=== PATIENT | female | born 1945 | race Caucasian/White ===

== ENCOUNTER 2017-07-16 00:23 | Inpatient (IN) | payer MEDICARE, OTHER ==
[~2017-07-16] VITALS: Ht 154.9 cm; Wt 74.2 kg
[~2017-07-16 00:23] MED LIST: ASPI-664 PO; BENA40TA54 PO; DEXL30CA2 PO; FOLI-49 PO; GLIM2TAB47 PO; METF500T4 PO; METH2.5T21 PO; METO5TAB58 PO; SIMV40TA3 PO; SITA100T8 PO
[2017-07-16] MEDS ORDERED: morphine 4 MG/ML VIAL IV STA (01:25)
[2017-07-16] MEDS ORDERED: VANCOMYCIN 1 GM (PMX) 250 ML IVPB ONE (01:30)
[2017-07-16 02:26] LABS: BASOPHILS % 0.4 % (0.0-2.0); EOSINOPHILS # 0.2 10^3/ul (0.0-0.5); EOSINOPHILS % 3.5 % (0.0-7.0); HEMATOCRIT 30.8 % (37.0-47.0); HEMOGLOBIN 9.4 g/dl (12.0-16.0); LYMPHOCYTES # 1.3 10^3/ul (0.8-2.9); LYMPHOCYTES % 27.3 % (15.0-51.0); MEAN CORPUSCULAR HEMOGLOBIN 24.8 pg (29.0-33.0); MEAN CORPUSCULAR HGB CONC 30.5 g/dl (32.0-37.0); MEAN CORPUSCULAR VOLUME 81.3 fl (82.0-101.0); MEAN PLATELET VOLUME 9.8 fl (7.4-10.4); MONOCYTE # 0.7 10^3/ul (0.3-0.9); MONOCYTES % 14.3 % (0.0-11.0); NEUTROPHIL # 2.6 10^3/ul (1.6-7.5); NEUTROPHILS % 54.3 % (39.0-77.0); PLATELET COUNT 112 10^3/UL (140-415); RED BLOOD COUNT 3.79 10^6/ul (4.20-5.40); WHITE BLOOD COUNT 4.8 10^3/ul (4.8-10.8)
[2017-07-16 02:36] LABS: ADD UMIC YES; UR ASCORBIC ACID NEGATIVE (NEGATIVE); UR BACTERIA FEW /HPF (NONE SEEN); UR BILIRUBIN (Dip) NEGATIVE (NEGATIVE); UR BLOOD (Dip) 1+ mg/dL (NEGATIVE); UR CLARITY CLEAR (CLEAR); UR COLOR YELLOW (YELLOW); UR GLUCOSE (Dip) NEGATIVE (NEGATIVE); UR KETONES (Dip) NEGATIVE (NEGATIVE); UR LEUKOCYTE ESTERASE (Dip) TRACE Leu/ul (NEGATIVE); UR NITRITE (Dip) NEGATIVE (NEGATIVE); UR RBC 0 /HPF (0-5); UR SPECIFIC GRAVITY (Dip) 1.008 (1.003-1.030); UR TOTAL PROTEIN (Dip) NEGATIVE (NEGATIVE); UR UROBILINOGEN (Dip) NEGATIVE (NEGATIVE)
[2017-07-16 02:46] LABS: ALBUMIN/GLOBULIN RATIO 1.14; BILIRUBIN,INDIRECT 0.2 mg/dl (0-1.1); BILIRUBIN,TOTAL 0.2 mg/dl (0.2-1.3); CALCIUM 9.4 mg/dl (8.4-10.2); CREATININE 0.87 mg/dl (0.44-1.00); POTASSIUM 4.1 mmol/L (3.5-5.1); TOTAL PROTEIN 7.5 g/dl (6.1-8.1)
[2017-07-16] MEDS ORDERED: ACETAMINOPHEN 325 MG TAB PO PRN (03:00)
[2017-07-16] MEDS ORDERED: ONDANSETRON 4 MG INJ IV PRN (03:00)
[2017-07-16] MEDS ORDERED: CEFTRIAXONE 1 GM/50 ML (PMX) 50 ML IVPB ONE (03:00)
[2017-07-16] MEDS ORDERED: SIMV40TA2 PO (03:11)
[2017-07-16] MEDS ORDERED: REMI IV (03:11)
[2017-07-16] MEDS ORDERED: PIOG30TA2 PO (03:11)
[2017-07-16] MEDS ORDERED: BENA40TA41 PO (03:11)
[2017-07-16] MEDS ORDERED: TERI2.4P SQ (03:11)
[2017-07-16] MEDS ORDERED: MTF1000T PO (03:11)
[2017-07-16] MEDS ORDERED: SITA100T8 PO (03:11)
[2017-07-16] MEDS ORDERED: GLIM4TAB55 PO (03:11)
[2017-07-16] MEDS ORDERED: FOLI-49 PO (03:11)
[2017-07-16] MEDS ORDERED: DEXL60CA2 PO (03:11)
[2017-07-16] MEDS ORDERED: ASPI-535 PO (03:11)
[2017-07-16 04:04] VITALS: Ht 154.9 cm; Wt 74.2 kg
[2017-07-16] MEDS ORDERED: HYDROCODONE/APAP (5/325) TAB PO PRN (06:30)
[2017-07-16] MEDS: PANTOPRAZOLE (EC) 40 MG TAB PO SCH (07:56)
[2017-07-16] MEDS: metFORMIN 500 MG TAB PO SCH ×2 (07:56→17:20)
[2017-07-16] MEDS: ACETAMINOPHEN 325 MG TAB PO PRN (07:56)
[2017-07-16] MEDS: INSULIN ASPART [NOVOLOG] 3 ML PEN SC SCH ×4 (07:57→20:34)
[2017-07-16 08:00] VITALS: BP 110/53; RESP 17
[2017-07-16] MEDS ORDERED: SOD CHLORIDE 0.9% IVPB SCH (08:00)
[2017-07-16] MEDS ORDERED: ACYCLOVIR IVPB SCH (08:00)
[2017-07-16 08:41] LABS: ABNORMAL IP MESSAGE 1; BASOPHILS % 0.5 % (0.0-2.0); EOSINOPHILS # 0.1 10^3/ul (0.0-0.5); EOSINOPHILS % 2.9 % (0.0-7.0); HEMATOCRIT 27.3 % (37.0-47.0); HEMOGLOBIN 8.2 g/dl (12.0-16.0); LYMPHOCYTES # 1.2 10^3/ul (0.8-2.9); LYMPHOCYTES % 30.3 % (15.0-51.0); MEAN CORPUSCULAR HEMOGLOBIN 24.8 pg (29.0-33.0); MEAN CORPUSCULAR VOLUME 82.5 fl (82.0-101.0); MEAN PLATELET VOLUME 9.7 fl (7.4-10.4); MONOCYTE # 0.6 10^3/ul (0.3-0.9); MONOCYTES % 15.1 % (0.0-11.0); NEUTROPHILS % 50.9 % (39.0-77.0); PLATELET COUNT 98 10^3/UL (140-415); RED BLOOD COUNT 3.31 10^6/ul (4.20-5.40); RED CELL DISTRIBUTION WIDTH 17.1 % (11.5-14.5); WHITE BLOOD COUNT 3.8 10^3/ul (4.8-10.8)
[2017-07-16] MEDS: PIOGLITAZONE 30 MG TAB PO SCH (08:47)
[2017-07-16] MEDS: GLIMEPIRIDE 4 MG TAB PO SCH (08:47)
[2017-07-16] MEDS: BENAZEPRIL 40 MG TAB PO SCH (08:48)
[2017-07-16] MEDS: LINAGLIPTIN 5 MG TABLET PO SCH (08:48)
[2017-07-16] MEDS: ASPIRIN (EC) 81 MG TAB PO SCH (08:48)
[2017-07-16] MEDS: FOLIC ACID 1 MG TAB PO SCH (08:48)
[2017-07-16] MEDS: GABAPENTIN 300 MG CAP PO SCH ×2 (08:48→20:34)
[2017-07-16 08:54] LABS: POSITIVE DIFF @See below
[2017-07-16] MEDS ORDERED: METHYLPREDNISOLONE 125 MG INJ IV SCH (09:00)
[2017-07-16] MEDS ORDERED: TERIPARATIDE 20 MCG XX SCH (09:00)
[2017-07-16 09:03] LABS: ALBUMIN 3.4 g/dl (3.3-4.9); ALBUMIN/GLOBULIN RATIO 1.09; BILIRUBIN,INDIRECT 0.1 mg/dl (0-1.1); BILIRUBIN,TOTAL 0.1 mg/dl (0.2-1.3); CALCIUM 8.6 mg/dl (8.4-10.2); CREATININE 0.73 mg/dl (0.44-1.00); MAGNESIUM 1.4 mg/dl (1.7-2.5); PHOSPHORUS 3.8 mg/dl (2.5-4.9); POTASSIUM 3.8 mmol/L (3.5-5.1); TOTAL PROTEIN 6.5 g/dl (6.1-8.1)
[2017-07-16 14:00] VITALS: BP 131/76; RESP 18
[2017-07-16] MEDS ORDERED: CEFAZOLIN 1 GM/50 ML (PMX) 50 ML IVPB SCH (14:00)
[2017-07-16] MEDS: ACYCLOVIR IVPB SCH ×2 (15:51→23:27)
[2017-07-16] MEDS: DEXTROSE 5% IVPB SCH ×2 (15:51→23:27)
[2017-07-16 19:50] VITALS: BP 110/54; RESP 20
[2017-07-16] MEDS: ATORVASTATIN 20 MG TAB PO SCH (20:34)
--- NOTE | 2017-07-16 21:37 | HP ---
DATE OF ADMISSION: 07/16/2017 REASON FOR ADMISSION: 1. Cutaneous zoster infection. 2. Superimposed cellulitis. 3. Infection of immunocompromised host. 4. Left lower extremity pain and redness. SECONDARY DIAGNOSES: 1. Diabetes. 2. Hypertension. 3. Coronary artery disease. 4. Rheumatoid arthritis. 5. Hyperlipidemia. CHIEF COMPLAINT: Sent in by primary care provider for worsening left lower extremity pain, redness, and swelling. HISTORY OF PRESENT ILLNESS: The patient is a very pleasant 72-year-old female with history of diabe esperanza, hypertension, coronary artery disease, rheumatoid arthritis on Remicade, hyperlipidemia, presen hal to the ED with complaints of right lower extremity redness and swelling. The patient indicated that this occurred 3 days prior. The patient was given oral antibiotics and was diagnosed with herp es zoster and sent home. Was instructed judiciously by her primary care provider, who indicated clint t the patient should return to the hospital if she has worsening of her left lower extremity given h er immunocompromised status and her diabetes. The patient felt that there was increasing pain, redn ess, and edema despite the oral antibiotics. The patient was seen and evaluated in the ED and moises castro was admitted to the hospital for further evaluation and treatment. Patient currently denies any chest pain, lightheadedness, dizziness. No nausea, vomiting, diarrhea, constipation. Does complain of right lower extremity redness and swelling with, left greater than right. There is evidence of pustules on the left lateral aspect of the lower leg and now the left l ateral aspect of the knee and the lateral epicondyle area. Denies any fevers or chills. ALLERGIES: NO KNOWN DRUG ALLERGIES. MEDICATIONS: 1. Aspirin 81 mg p.o. every day. 2. Benazepril 40 mg p.o. every day. 3. Dexilant 60 mg p.o. every day. 4. Folic acid 1 mg p.o. every day. 5. Glimepiride 2 mg p.o. every day. 6. Remicade 100 mg solution every 6 weeks. 7. Metformin 1000 mg p.o. b.i.d. 8. Methotrexate 2.5 mg 6 tabs weekly. 9. Reglan 5 mg p.o. every day. 10. Actos 30 mg p.o. every day. 11. Simvastatin 40 mg p.o. every day. 12. Januvia 100 mg p.o. every day. 13. Forteo 2.4 pen injection subcutaneous once a day. PAST MEDICAL HISTORY: 1. Diabetes, on multiple medications. 2. Hypertension. 3. Coronary artery disease. 4. Rheumatoid arthritis. 5. Hyperlipidemia. 6. Osteoporosis, on Forteo. PAST SURGICAL HISTORY: 1. History of hysterectomy. 2. Cholecystectomy. 3. Hernia repair. PAST HOSPITALIZATION: Hospitalized for pneumonia, rheumatoid flare. FAMILY HISTORY: Reviewed and noncontributory. SOCIAL HISTORY: The patient lives with her and daughter. I was able to use a cane at times when her rheumatoid flares. PHYSICAL EXAMINATION: On hospital floor: VITAL SIGNS: Temperature is 97.6, blood pressure is 140/63, pulse of 90, respiratory rate 16, satur ating 99% on room air. GENERAL: Patient was awake, alert, and oriented x4. HEENT: Normocephalic, atraumatic. Sclerae nonicteric. Oropharynx clear. Dry mucous membranes. NECK: No lymphadenopathy. No thyromegaly. HEART: Regular rate and rhythm, normal S1, S2. There is a III/ systolic murmur located in the le ft lower sternal border. LUNGS: Clear to auscultation bilaterally. ABDOMEN: Soft, nontender, nondistended, obese. EXTREMITIES: No clubbing, cyanosis. There is mild nonpitting edema in the right lower extremity wi th circumferential cellulitis of the distal lower extremity. There is a patch approximately the siz e of a Rosales dollar where there is a lesion, irregular with vessels that is confluent. There are a lso two vesicles noted on the left lateral area of the knee. LABORATORY DATA: Current laboratories demonstrate WBC is 3.8, hemoglobin 8.2, platelets of 98. So dium 143, potassium 3.8, bicarbonate 12, BUN is 14, creatinine 0.8, magnesium is 1.4. Imaging shows no recent imaging. ASSESSMENT AND PLAN: The patient is a very pleasant 72-year-old female with history of diabetes, hy pertension, hyperlipidemia, rheumatoid arthritis on Remicade injections, presented to the emergency department with worsening of her left lower extremity with redness and pain. The patient was found to have failed oral antibiotics for superimposed infection from herpes zoster. 1. Cutaneous zoster. We will provide patient with IV acyclovir. Provide Solu-Medrol x2 dosing and Neurontin for pain. Patient will be monitored closely given her immunocompromised status. 2. Superimposed cellulitis. Patient was started on cefazolin. Patient does not have any prior hos pitalizations recently. Of note, the patient was hospitalized before in 2013, for chest pain. Her risk of methicillin-resistant Staphylococcus aureus is low. We will continue to monitor and adjust antibiotics appropriately. 3. Infection of immunocompromised host. The patient does have history of being on Remicade d iabetes, currently will be given a Solu-Medrol injection x1 to decrease the inflammation and limit t he post-effects of postherpetic neuralgia. The patient will be monitored in the hospital for any glez perimposed infection. 4. Left lower extremity pain. Pain improved with current pain medications and Neurontin. 5. Diabetes. Expected patient have hyperglycemia secondary to steroid use. 6. Hypertension. Continue blood pressure medications. Also, may be increased due to steroid use. 7. Rheumatoid arthritis. Currently not active. Receives a Remicade injection every 6 weeks. 8. Code status. The patient is FULL CODE. Dictated By: MURTAZA DEJESUS/YUNG Conf#: [id number] DID#: [id number]
[2017-07-17] MEDS: ACCU-CHEK XX SCH (01:11)
[2017-07-17] MEDS ORDERED: ACCU-CHEK XX SCH (02:00)
[2017-07-17 02:10] VITALS: BP 96/45; RESP 18
[2017-07-17] MEDS: PANTOPRAZOLE (EC) 40 MG TAB PO SCH (06:03)
[2017-07-17 06:37] LABS: BASOPHILS % 0.2 % (0.0-2.0); EOSINOPHILS % 0.4 % (0.0-7.0); HEMATOCRIT 26.1 % (37.0-47.0); HEMOGLOBIN 7.9 g/dl (12.0-16.0); LYMPHOCYTES # 1.3 10^3/ul (0.8-2.9); LYMPHOCYTES % 22.4 % (15.0-51.0); MEAN CORPUSCULAR HEMOGLOBIN 24.8 pg (29.0-33.0); MEAN CORPUSCULAR HGB CONC 30.3 g/dl (32.0-37.0); MEAN CORPUSCULAR VOLUME 81.8 fl (82.0-101.0); MEAN PLATELET VOLUME 9.6 fl (7.4-10.4); MONOCYTE # 0.6 10^3/ul (0.3-0.9); MONOCYTES % 10.6 % (0.0-11.0); NEUTROPHIL # 3.8 10^3/ul (1.6-7.5); PLATELET COUNT 102 10^3/UL (140-415); RED BLOOD COUNT 3.19 10^6/ul (4.20-5.40); WHITE BLOOD COUNT 5.7 10^3/ul (4.8-10.8)
[2017-07-17 07:32] LABS: ALBUMIN 3.1 g/dl (3.3-4.9); BILIRUBIN,INDIRECT 0.1 mg/dl (0-1.1); BILIRUBIN,TOTAL 0.1 mg/dl (0.2-1.3); CALCIUM 8.7 mg/dl (8.4-10.2); CREATININE 0.72 mg/dl (0.44-1.00); MAGNESIUM 1.5 mg/dl (1.7-2.5); PHOSPHORUS 3.6 mg/dl (2.5-4.9); POTASSIUM 4.2 mmol/L (3.5-5.1); TOTAL PROTEIN 6.2 g/dl (6.1-8.1)
[2017-07-17 07:35] VITALS: BP 111/55; RESP 18
[2017-07-17] MEDS: INSULIN ASPART [NOVOLOG] 3 ML PEN SC SCH ×4 (07:51→20:17)
[2017-07-17] MEDS: FOLIC ACID 1 MG TAB PO SCH (08:25)
[2017-07-17] MEDS: metFORMIN 500 MG TAB PO SCH ×2 (08:25→17:46)
[2017-07-17] MEDS: LINAGLIPTIN 5 MG TABLET PO SCH (08:25)
[2017-07-17] MEDS: PIOGLITAZONE 30 MG TAB PO SCH (08:25)
[2017-07-17] MEDS: ACYCLOVIR IVPB SCH (08:26)
[2017-07-17] MEDS: BENAZEPRIL 40 MG TAB PO SCH (08:26)
[2017-07-17] MEDS: DEXTROSE 5% IVPB SCH (08:26)
[2017-07-17] MEDS: GLIMEPIRIDE 4 MG TAB PO SCH (08:26)
[2017-07-17] MEDS: GABAPENTIN 300 MG CAP PO SCH ×2 (08:26→20:15)
[2017-07-17] MEDS: ASPIRIN (EC) 81 MG TAB PO SCH (08:27)
[2017-07-17] MEDS ORDERED: METHYLPREDNISOLONE 125 MG INJ IV SCH (09:00)
[2017-07-17 14:09] VITALS: BP 126/56; RESP 16
[2017-07-17] MEDS: ACYCLOVIR 500 MG in DEXTROSE 5% 100 ML IVPB SCH ×2 (15:26→23:22)
[2017-07-17] MEDS ORDERED: GLUCAGON 1 MG INJ IM PRN (16:30)
[2017-07-17] MEDS ORDERED: GLUCOSE GEL 15 GRAM TUBE PO PRN ×2 (16:30)
[2017-07-17] MEDS ORDERED: GLUCOSE GEL 15 GRAM TUBE BUCCAL PRN (16:30)
[2017-07-17] MEDS ORDERED: DEXTROSE 50% 50 ML SYRINGE IV PRN ×2 (16:30)
--- NOTE | 2017-07-17 18:24 | PN ---
Date/Time of Note Date/Time of Note DATE: 07/17/17 TIME: 18:17 Assessment/Plan VTE Prophylaxis VTE Prophylaxis Intervention: heparin Lines/Catheters IV Catheter Type (from Nrsg): Saline Lock Assessment/Plan Assessment/Plan REASON FOR ADMISSION: 1. Cutaneous zoster infection. 2. Superimposed cellulitis. 3. Infection of immunocompromised host. 4. Left lower extremity pain and redness. SECONDARY DIAGNOSES: 1. Diabetes. 2. Hypertension. 3. Coronary artery disease. 4. Rheumatoid arthritis. 5. Hyperlipidemia. HISTORY OF PRESENT ILLNESS: The patient is a very pleasant 72-year-old female with history of diabetes, hypertension, coronary artery disease, rheumatoid arthritis on Remicade, hyperlipidemia, presented to the ED with complaints of right lower extremity redness and swelling. The patient indicated that this occurred 3 days prior. The patient was given oral antibiotics and was diagnosed with herpes zoster and sent home. Was instructed judiciously by her primary care provider, who indicated that the patient should return to the hospital if she has worsening of her left lower extremity given her immunocompromised status and her diabetes. The patient felt that there was increasing pain, redness, and edema despite the oral antibiotics. The patient was seen and evaluated in the ED and patient was admitted to the hospital for further evaluation and treatment. 1. Cutaneous zoster of JOSIE -iv antiviral, s/p solumedrol, neurontin for pain, contact precautions -continue current care, monitor for sepsis/viremia 2. Superimposed cellulitis. - continue iv antibiotics, will switch to keflex 3. Infection of immunocompromised host. - continue care as above 4. Left lower extremity pain. Pain improved with current pain medications and Neurontin. 5. Diabetes. Expected patient have hyperglycemia secondary to steroid use. 6. Hypertension. Continue blood pressure medications. 7. Rheumatoid arthritis. Currently not active. Receives a Remicade injection every 6 weeks. Osteoporosis - holding forteo, resume upon discharge. 8. Anemia, started iron, iron panel, likely ACD, transfuse prn or symptomatic 9. DVT P - heparin sq 10. Code status. The patient is FULL CODE. Subjective 24 Hr Interval Summary Constitutional: improved, no complaints Eyes: no complaints ENT: no complaints Respiratory: no complaints Cardiovascular: no complaints, No chest pain, No edema, No lightheadedness Gastrointestinal: no complaints, No pain Genitourinary: No discharge, No dysuria Musculoskeletal: no complaints Immunologic: no complaints, No pruritis, No urticaria Exam/Review of Systems Vital Signs Vitals Vital Signs Date Time Temp Pulse Resp B/P Pulse Ox O2 Delivery O2 Flow Rate FiO2 07/17/17 14:09 98.2 96 16 126/56 94 Intake and Output 07/16/17 07/16/17 07/17/17 15:00 23:00 07:00 Intake Total 200 ml 870 ml 590 ml Balance 200 ml 870 ml 590 ml Exam Constitutional: alert, oriented Psych: no complaints Head: atraumatic, normocephalic Eyes: EOMI, nl conjunctiva ENMT: nl external ears & nose, nl nasal mucosa & septum Neck: non-tender, supple Respiratory: clear to auscultation, normal air movement Cardiovascular: nl pulses, regular rate and rhythm Gastrointestinal: nl liver, spleen, soft Musculoskeletal: other (Left lower extremity with decreased swelling and redness, pain and tingling improved, blisters not broken open yet, no signs spreading) Neurological: HOG SCALDER II-XII intact, nl speech, nl strength Lymph: nl lymph nodes, No enlarged Results Result Diagram: 07/17/178 07/17/17 0448 Results 24 hrs Laboratory Tests Test 07/16/17 20:32 07/17/17 01:59 07/17/17 04:48 07/17/17 07:48 Bedside Glucose 253 H 132 137 White Blood Count 5.7 # Red Blood Count 3.19 L Hemoglobin 7.9 L Hematocrit 26.1 L Mean Corpuscular Volume 81.8 L Mean Corpuscular Hemoglobin 24.8 L Mean Corpuscular Hemoglobin Concent 30.3 L Red Cell Distribution Width 17.0 H Platelet Count 102 L Mean Platelet Volume 9.6 Neutrophils % 66.0 Lymphocytes % 22.4 Monocytes % 10.6 Eosinophils % 0.4 Basophils % 0.2 Nucleated Red Blood Cells % 0.0 Neutrophils # 3.8 Lymphocytes # 1.3 Monocytes # 0.6 Eosinophils # 0.0 Basophils # 0.0 Nucleated Red Blood Cells # 0.0 Sodium Level 139 Potassium Level 4.2 Chloride Level 106 Carbon Dioxide Level 25 Anion Gap 12 Blood Urea Nitrogen 15 Creatinine 0.72 Glucose Level 113 Calcium Level 8.7 Phosphorus Level 3.6 Magnesium Level 1.5 L Total Bilirubin 0.1 L Direct Bilirubin 0.00 Indirect Bilirubin 0.1 Aspartate Amino Transf (AST/SGOT) 28 Alanine Aminotransferase (ALT/SGPT) 36 Alkaline Phosphatase 65 Total Protein 6.2 Albumin 3.1 L Globulin 3.10 Albumin/Globulin Ratio 1.00 Test 07/17/17 11:59 07/17/17 17:17 Bedside Glucose 205 275 H Medications Medications Current Medications Aspirin (Halfprin) 81 mg DAILY PO Last administered on 07/17/17 08:27; Admin Dose 81 MG; Start 07/16/17 at 09:00 Benazepril HCl (Lotensin) 40 mg DAILY PO Last administered on 07/17/17 08:26 ; Admin Dose 40 MG; Start 07/16/17 at 09:00 Pioglitazone HCl (Actos) 30 mg DAILY PO Last administered on 07/17/17 08:25; Admin Dose 30 MG; Start 07/16/17 at 09:00 Atorvastatin Calcium (Lipitor) 20 mg DAILY@21 PO Last administered on 20:34; Admin Dose 20 MG; Start 07/16/17 at 21:00 Linagliptin (Tradjenta) 5 mg DAILY PO Last administered on 07/17/17 08:25; Admin Dose 5 MG; Start 07/16/17 at 09:00 Miscellaneous Information 20 mcg DAILY XX ; Start 07/16/17 at 09:00; Status UNV Glimepiride (Amaryl) 8 mg DAILY PO Last administered on 07/17/17 08:26; Admin Dose 8 MG; Start 07/16/17 at 09:00 Folic Acid (Folic Acid) 1 mg DAILY PO Last administered on 07/17/17 08:25; Admin Dose 1 MG; Start 07/16/17 at 09:00 Pantoprazole (Protonix Tab) 40 mg DAILY@06 PO Last administered on 07/17/17 06:03; Admin Dose 40 MG; Start 07/16/17 at 07:00 Acetaminophen (Tylenol Tab) 650 mg Q4H PRN PO PAIN AND OR ELEVATED TEMP Last administered on 07/16/17 07:56; Admin Dose 650 MG; Start 07/16/17 at 06:30 Acetaminophen/ Hydrocodone Bitart ([place] (5/325)) 1 tab Q4H PRN PO PAIN; Start 07/16/17 at 06:30 Gabapentin (Neurontin) 300 mg BID PO Last administered on 07/17/17 08:26; Admin Dose 300 MG; Start 07/16/17 at 09:00 Diagnostic Test (Pha) (Accu-Chek) 1 ea 02 XX ; Start 07/17/17 at 02:00 Methylprednisolone Sodium Succinate 60 mg 60 mg DAILY IV Last administered on 07/17/17 08:25; Admin Dose 60 MG; Start 07/17/17 at 09:00 Acyclovir/Dextrose (Zovirax/D5W) 100 ml @ 100 mls/hr Q8H IVPB Last administered on 07/17/17 15:26; Admin Dose 100 MLS/HR; Start 07/17/17 at 16: 00 Miscellaneous Information 1 ea NOTE XX ; Start 07/17/17 at 16:30 Glucose (Glutose) 15 gm Q15M PRN PO DECREASED GLUCOSE; Start 07/17/17 at 16:30 Glucose (Glutose) 22.5 gm Q15M PRN PO DECREASED GLUCOSE; Start 07/17/17 at 16: 30 Dextrose (D50w Syringe) 25 ml Q15M PRN IV DECREASED GLUCOSE; Start 07/17/17 at 16:30 Dextrose (D50w Syringe) 50 ml Q15M PRN IV DECREASED GLUCOSE; Start 07/17/17 at 16:30 Glucagon (Glucagen) 1 mg Q15M PRN IM DECREASED GLUCOSE; Start 07/17/17 at 16: 30 Glucose (Glutose) 15 gm Q15M PRN BUCCAL DECREASED GLUCOSE; Start 07/17/17 at 16:30 MURTAZA MCCARTNEY MD Jul 17, 2017 18:24
[2017-07-17] MEDS ORDERED: MAGNESIUM SULFATE 2 GM/50 ML 50 ML IVPB ONE (19:30)
[2017-07-17 19:40] VITALS: BP 105/52; RESP 20
[2017-07-17] MEDS: ATORVASTATIN 20 MG TAB PO SCH (20:15)
[2017-07-17] MEDS ORDERED: HEPARIN 5,000 UNIT/0.5 ML VIAL SC SCH (21:00)
[2017-07-18] MEDS: ACCU-CHEK XX SCH (01:57)
[2017-07-18 02:06] VITALS: BP 100/53; RESP 20
[2017-07-18] MEDS: PANTOPRAZOLE (EC) 40 MG TAB PO SCH (05:18)
[2017-07-18 06:17] LABS: BASOPHILS % 0.2 % (0.0-2.0); EOSINOPHILS % 0.5 % (0.0-7.0); HEMATOCRIT 27.3 % (37.0-47.0); HEMOGLOBIN 8.4 g/dl (12.0-16.0); LYMPHOCYTES # 1.7 10^3/ul (0.8-2.9); LYMPHOCYTES % 29.7 % (15.0-51.0); MEAN CORPUSCULAR HGB CONC 30.8 g/dl (32.0-37.0); MEAN CORPUSCULAR VOLUME 81.3 fl (82.0-101.0); MEAN PLATELET VOLUME 9.1 fl (7.4-10.4); MONOCYTE # 0.6 10^3/ul (0.3-0.9); NEUTROPHIL # 3.5 10^3/ul (1.6-7.5); NEUTROPHILS % 59.4 % (39.0-77.0); PLATELET COUNT 105 10^3/UL (140-415); RED BLOOD COUNT 3.36 10^6/ul (4.20-5.40); RED CELL DISTRIBUTION WIDTH 17.2 % (11.5-14.5); WHITE BLOOD COUNT 5.8 10^3/ul (4.8-10.8)
[2017-07-18 06:34] LABS: CALCIUM 8.8 mg/dl (8.4-10.2); CREATININE 0.77 mg/dl (0.44-1.00); MAGNESIUM 1.9 mg/dl (1.7-2.5); PHOSPHORUS 3.3 mg/dl (2.5-4.9)
[2017-07-18 06:44] LABS: IRON 13 ug/dl (35-150)
[2017-07-18 06:55] LABS: TOTAL IRON BINDING CAPACITY 440 ug/dl (241-421)
[2017-07-18 07:53] VITALS: BP 112/55; RESP 18
[2017-07-18] MEDS: INSULIN ASPART [NOVOLOG] 3 ML PEN SC SCH ×4 (08:00→21:00)
[2017-07-18] MEDS ORDERED: VANCOMYCIN IV PER PHARMACY XX SCH (08:00)
[2017-07-18] MEDS ORDERED: VANCOMYCIN 1 GM (PMX) 250 ML IVPB SCH (08:00)
[2017-07-18] MEDS: metFORMIN 500 MG TAB PO SCH ×2 (08:12→17:48)
--- NOTE | 2017-07-18 08:14 | PN ---
Date/Time of Note Date/Time of Note DATE: 07/18/17 TIME: 08:09 Assessment/Plan VTE Prophylaxis VTE Prophylaxis Intervention: other Lines/Catheters IV Catheter Type (from Nrsg): Saline Lock Assessment/Plan Assessment/Plan 1. Shingles left lower extrem, improved as is cellulitis after receiving just one dose of vanco on admit, will cont same 2. Anemia, iron deficient noted prior to admit, she has appt with GI tomm, stooll ob ordered and will stop heparin, iv iron ordered. 3. Left leg larger then right, will be certain no DVT. 4. Adult onset DM, sugar control is reasonable. 5. HBP, controlled. Subjective 24 Hr Interval Summary Respiratory: No cough, No shortness of breath Cardiovascular: No chest pain Gastrointestinal: no complaints Genitourinary: no complaints Musculoskeletal: No back pain Skin: other (she has noticed less redness and pain involving distal left tibia) Neurologic: No headache Exam/Review of Systems Vital Signs Vitals Vital Signs Date Time Temp Pulse Resp B/P Pulse Ox O2 Delivery O2 Flow Rate FiO2 07/18/17 07:53 98.5 81 18 112/55 97 Intake and Output 07/17/17 07/17/17 07/18/17 15:00 23:00 07:00 Intake Total 150 ml 950 ml 750 ml Balance 150 ml 950 ml 750 ml Exam Neck: No jvd Respiratory: clear to auscultation Cardiovascular: regular rate and rhythm Gastrointestinal: soft, No hepatomegaly, No non-tender Extremities: edema, other (left lower extrem sl larger then right, no calf tend and no pitting edema) Results Result Diagram: 07/18/17 0535 07/18/17 0535 Results 24 hrs Laboratory Tests Test 07/17/17 11:59 07/17/17 17:17 07/17/17 20:14 07/18/17 01:54 Bedside Glucose 205 275 H 224 H 152 Test 07/18/17 05:35 07/18/17 08:04 White Blood Count 5.8 Red Blood Count 3.36 L Hemoglobin 8.4 L Hematocrit 27.3 L Mean Corpuscular Volume 81.3 L Mean Corpuscular Hemoglobin 25.0 L Mean Corpuscular Hemoglobin Concent 30.8 L Red Cell Distribution Width 17.2 H Platelet Count 105 L Mean Platelet Volume 9.1 Neutrophils % 59.4 Lymphocytes % 29.7 Monocytes % 10.0 Eosinophils % 0.5 Basophils % 0.2 Nucleated Red Blood Cells % 0.0 Neutrophils # 3.5 Lymphocytes # 1.7 Monocytes # 0.6 Eosinophils # 0.0 Basophils # 0.0 Nucleated Red Blood Cells # 0.0 Sodium Level 142 Potassium Level 4.0 Chloride Level 107 Carbon Dioxide Level 27 Anion Gap 12 Blood Urea Nitrogen 16 Creatinine 0.77 Glucose Level 130 Calcium Level 8.8 Phosphorus Level 3.3 Magnesium Level 1.9 Iron Level 13 L Total Iron Binding Capacity 440 H Percent Iron Saturation 3 L Bedside Glucose 126 Medications Medications Current Medications Aspirin (Halfprin) 81 mg DAILY PO Last administered on 07/17/17 08:27; Admin Dose 81 MG; Start 07/16/17 at 09:00 Benazepril HCl (Lotensin) 40 mg DAILY PO Last administered on 07/17/17 08:26 ; Admin Dose 40 MG; Start 07/16/17 at 09:00 Pioglitazone HCl (Actos) 30 mg DAILY PO Last administered on 07/17/17 08:25; Admin Dose 30 MG; Start 07/16/17 at 09:00 Atorvastatin Calcium (Lipitor) 20 mg DAILY@21 PO Last administered on 20:15; Admin Dose 20 MG; Start 07/16/17 at 21:00 Linagliptin (Tradjenta) 5 mg DAILY PO Last administered on 07/17/17 08:25; Admin Dose 5 MG; Start 07/16/17 at 09:00 Miscellaneous Information 20 mcg DAILY XX ; Start 07/16/17 at 09:00; Status UNV Glimepiride (Amaryl) 8 mg DAILY PO Last administered on 07/17/17 08:26; Admin Dose 8 MG; Start 07/16/17 at 09:00 Folic Acid (Folic Acid) 1 mg DAILY PO Last administered on 07/17/17 08:25; Admin Dose 1 MG; Start 07/16/17 at 09:00 Pantoprazole (Protonix Tab) 40 mg DAILY@06 PO Last administered on 07/18/17 05:18; Admin Dose 40 MG; Start 07/16/17 at 07:00 Acetaminophen (Tylenol Tab) 650 mg Q4H PRN PO PAIN AND OR ELEVATED TEMP Last administered on 11/11/17at 07:56; Admin Dose 650 MG; Start 07/16/17 at 06:30 Acetaminophen/ Hydrocodone Bitart ([place] (5/325)) 1 tab Q4H PRN PO PAIN; Start 07/16/17 at 06:30 Gabapentin (Neurontin) 300 mg BID PO Last administered on 07/17/17 20:15; Admin Dose 300 MG; Start 07/16/17 at 09:00 Diagnostic Test (Pha) (Accu-Chek) 1 ea 02 XX Last administered on 07/18/17 01 :57; Admin Dose 1 EA; Start 07/17/17 at 02:00 Methylprednisolone Sodium Succinate 60 mg 60 mg DAILY IV Last administered on 07/17/17 08:25; Admin Dose 60 MG; Start 07/17/17 at 09:00 Acyclovir/Dextrose (Zovirax/D5W) 100 ml @ 100 mls/hr Q8H IVPB Last administered on 07/17/17 23:22; Admin Dose 100 MLS/HR; Start 07/17/17 at 16: 00 Miscellaneous Information 1 ea NOTE XX ; Start 07/17/17 at 16:30 Glucose (Glutose) 15 gm Q15M PRN PO DECREASED GLUCOSE; Start 07/17/17 at 16:30 Glucose (Glutose) 22.5 gm Q15M PRN PO DECREASED GLUCOSE; Start 07/17/17 at 16: 30 Dextrose (D50w Syringe) 25 ml Q15M PRN IV DECREASED GLUCOSE; Start 07/17/17 at 16:30 Dextrose (D50w Syringe) 50 ml Q15M PRN IV DECREASED GLUCOSE; Start 07/17/17 at 16:30 Glucagon (Glucagen) 1 mg Q15M PRN IM DECREASED GLUCOSE; Start 07/17/17 at 16: 30 Glucose (Glutose) 15 gm Q15M PRN BUCCAL DECREASED GLUCOSE; Start 07/17/17 at 16:30 Heparin Sodium (Porcine) (Heparin (5000 Units/0.5 ml)) 5,000 unit BID SC Last administered on 07/17/17 20:16; Admin Dose 5,000 UNIT; Start 07/17/17 at 21: 00 AZRA HAQUE MD Jul 18, 2017 08:14
[2017-07-18] MEDS: GABAPENTIN 300 MG CAP PO SCH ×2 (08:45→21:30)
[2017-07-18] MEDS: ASPIRIN (EC) 81 MG TAB PO SCH (08:45)
[2017-07-18] MEDS: PIOGLITAZONE 30 MG TAB PO SCH (08:45)
[2017-07-18] MEDS: LINAGLIPTIN 5 MG TABLET PO SCH (08:45)
[2017-07-18] MEDS: FOLIC ACID 1 MG TAB PO SCH (08:45)
[2017-07-18] MEDS: BENAZEPRIL 40 MG TAB PO SCH (08:45)
--- NOTE | 2017-07-18 09:17 | RADRPT ---
PROCEDURE: Ultrasound of the bilateral lower extremity venous system. CLINICAL INDICATION: Bilateral leg pain and swelling, deep venous thrombosis TECHNIQUE: Polk scale with and without compression, color doppler, spectral doppler of the venous system of the bilateral lower extremities was performed. Venous augmentation maneuvers were utilized . COMPARISON: No prior studies are available for comparison. FINDINGS: Right: Common femoral vein: Patent. Femoral vein: Patent. Popliteal vein: Patent. Calf veins: Patent. No soft tissue abnormalities are identified. Left: Common femoral vein: Patent. Femoral vein: Patent. Popliteal vein: Patent. Calf veins: Patent. No soft tissue abnormalities are identified. IMPRESSION: No evidence of a deep vein thrombosis within the bilateral lower extremities. RPTAT: AADD .Asif Carrillo MD, MD Date Time Electronically viewed and signed by .Asif Carrillo MD, on 07/18/2017 09:17 .B/
[2017-07-18 10:06] LABS: FOLATE > 20.0 ng/ml (2.8-20.0)
[2017-07-18] MEDS ORDERED: VANCOMYCIN 1.75 GM in NS 500 ML IVPB SCH (10:30)
[2017-07-18] MEDS: SILVER SULFADIAZINE 1% 25 GM CR TOP SCH ×2 (10:52→21:31)
[2017-07-18] MEDS: SOD FERRIC GLUC COMPLX 125 MG in SOD CHLORIDE 0.9% 100 ML IVPB SCH (10:52)
[2017-07-18] MEDS: [UNRECOGNIZED DRUG - REMARK] XX SCH (17:30)
[2017-07-18 20:58] VITALS: BP 141/62; RESP 18
[2017-07-18] MEDS: ATORVASTATIN 20 MG TAB PO SCH (21:30)
[2017-07-18] MEDS: ACETAMINOPHEN 325 MG TAB PO PRN (21:42)
[2017-07-19] MEDS: [UNRECOGNIZED DRUG - REMARK] XX SCH ×2 (01:30→08:32)
[2017-07-19] MEDS: ACCU-CHEK XX SCH (02:00)
[2017-07-19 03:24] VITALS: BP 115/57; RESP 18
[2017-07-19] MEDS: PANTOPRAZOLE (EC) 40 MG TAB PO SCH (05:17)
[2017-07-19 05:39] LABS: BASOPHILS % 0.4 % (0.0-2.0); EOSINOPHILS # 0.1 10^3/ul (0.0-0.5); EOSINOPHILS % 1.9 % (0.0-7.0); HEMATOCRIT 29.3 % (37.0-47.0); LYMPHOCYTES # 1.7 10^3/ul (0.8-2.9); LYMPHOCYTES % 32.8 % (15.0-51.0); MEAN CORPUSCULAR HEMOGLOBIN 25.2 pg (29.0-33.0); MEAN CORPUSCULAR HGB CONC 30.7 g/dl (32.0-37.0); MEAN CORPUSCULAR VOLUME 82.1 fl (82.0-101.0); MEAN PLATELET VOLUME 9.5 fl (7.4-10.4); MONOCYTE # 0.5 10^3/ul (0.3-0.9); MONOCYTES % 9.8 % (0.0-11.0); NEUTROPHIL # 2.9 10^3/ul (1.6-7.5); NEUTROPHILS % 54.5 % (39.0-77.0); NUCLEATED RED BLOOD CELLS% 0.6 /100WBC (0.0-0.0); PLATELET COUNT 113 10^3/UL (140-415); RED BLOOD COUNT 3.57 10^6/ul (4.20-5.40); RED CELL DISTRIBUTION WIDTH 17.2 % (11.5-14.5); WHITE BLOOD COUNT 5.2 10^3/ul (4.8-10.8)
[2017-07-19 06:29] LABS: CALCIUM 8.6 mg/dl (8.4-10.2); CREATININE 0.71 mg/dl (0.44-1.00); MAGNESIUM 1.5 mg/dl (1.7-2.5); PHOSPHORUS 3.7 mg/dl (2.5-4.9)
--- NOTE | 2017-07-19 07:40 | PN ---
Date/Time of Note Date/Time of Note DATE: 07/19/17 TIME: 07:35 Assessment/Plan VTE Prophylaxis VTE Prophylaxis Intervention: other Lines/Catheters IV Catheter Type (from Nrsg): Saline Lock Assessment/Plan Assessment/Plan 1. Cellultis is much improved and told her to continue cleocin 300 mg qid for 5d 2. DM, sugars are acceptable 3. HBP, controlled. 4. Anemia is stable and occult blood is negative 5. Can dc after magnesium repletion Subjective 24 Hr Interval Summary Respiratory: No shortness of breath Cardiovascular: No chest pain, No lightheadedness Gastrointestinal: no complaints Genitourinary: no complaints Musculoskeletal: no complaints Skin: other (pain in left leg is much better and less redness) Exam/Review of Systems Vital Signs Vitals Vital Signs Date Time Temp Pulse Resp B/P Pulse Ox O2 Delivery O2 Flow Rate FiO2 07/19/17 03:24 98.7 87 18 115/57 95 Intake and Output 07/18/17 07/18/17 07/19/17 14:59 22:59 06:59 Intake Total 110 ml 500 ml 240 ml Balance 110 ml 500 ml 240 ml Exam Neck: non-tender, No jvd Respiratory: clear to auscultation Cardiovascular: regular rate and rhythm Gastrointestinal: soft Extremities: No edema (and no calf tend) Skin: other (no erythema is present left pretibail area) Results Result Diagram: 07/19/176 07/19/17 0446 Results 24 hrs Laboratory Tests Test 07/18/17 08:04 07/18/17 12:01 07/18/17 17:45 07/18/17 21:00 Bedside Glucose 126 130 189 Stool Occult Blood NEGATIVE Test 07/18/17 21:28 07/19/17 04:46 Bedside Glucose 151 White Blood Count 5.2 Red Blood Count 3.57 L Hemoglobin 9.0 L Hematocrit 29.3 L Mean Corpuscular Volume 82.1 Mean Corpuscular Hemoglobin 25.2 L Mean Corpuscular Hemoglobin Concent 30.7 L Red Cell Distribution Width 17.2 H Platelet Count 113 L Mean Platelet Volume 9.5 Neutrophils % 54.5 Lymphocytes % 32.8 Monocytes % 9.8 Eosinophils % 1.9 Basophils % 0.4 Nucleated Red Blood Cells % 0.6 H Neutrophils # 2.9 Lymphocytes # 1.7 Monocytes # 0.5 Eosinophils # 0.1 Basophils # 0.0 Nucleated Red Blood Cells # 0.0 Sodium Level 142 Potassium Level 4.0 Chloride Level 108 Carbon Dioxide Level 24 Anion Gap 14 Blood Urea Nitrogen 16 Creatinine 0.71 Glucose Level 125 Calcium Level 8.6 Phosphorus Level 3.7 Magnesium Level 1.5 L Medications Medications Current Medications Aspirin (Halfprin) 81 mg DAILY PO Last administered on 07/18/17 08:45; Admin Dose 81 MG; Start 07/16/17 at 09:00 Benazepril HCl (Lotensin) 40 mg DAILY PO Last administered on 07/18/17 08:45 ; Admin Dose 40 MG; Start 07/16/17 at 09:00 Pioglitazone HCl (Actos) 30 mg DAILY PO Last administered on 07/18/17 08:45; Admin Dose 30 MG; Start 07/16/17 at 09:00 Atorvastatin Calcium (Lipitor) 20 mg DAILY@21 PO Last administered on 21:30; Admin Dose 20 MG; Start 07/16/17 at 21:00 Linagliptin (Tradjenta) 5 mg DAILY PO Last administered on 07/18/17 08:45; Admin Dose 5 MG; Start 07/16/17 at 09:00 Miscellaneous Information 20 mcg DAILY XX ; Start 07/16/17 at 09:00; Status UNV Folic Acid (Folic Acid) 1 mg DAILY PO Last administered on 07/18/17 08:45; Admin Dose 1 MG; Start 07/16/17 at 09:00 Pantoprazole (Protonix Tab) 40 mg DAILY@06 PO Last administered on 07/19/17 05:17; Admin Dose 40 MG; Start 07/16/17 at 07:00 Acetaminophen (Tylenol Tab) 650 mg Q4H PRN PO PAIN AND OR ELEVATED TEMP Last administered on 07/18/17 21:42; Admin Dose 650 MG; Start 07/16/17 at 06:30 Acetaminophen/ Hydrocodone Bitart ([place] (5/325)) 1 tab Q4H PRN PO PAIN; Start 07/16/17 at 06:30 Gabapentin (Neurontin) 300 mg BID PO Last administered on 07/18/17 21:30; Admin Dose 300 MG; Start 07/16/17 at 09:00 Diagnostic Test (Pha) (Accu-Chek) 1 ea 02 XX Last administered on 07/18/17 01 :57; Admin Dose 1 EA; Start 07/17/17 at 02:00 Miscellaneous Information 1 ea NOTE XX ; Start 07/17/17 at 16:30 Glucose (Glutose) 15 gm Q15M PRN PO DECREASED GLUCOSE; Start 07/17/17 at 16:30 Glucose (Glutose) 22.5 gm Q15M PRN PO DECREASED GLUCOSE; Start 07/17/17 at 16: 30 Dextrose (D50w Syringe) 25 ml Q15M PRN IV DECREASED GLUCOSE; Start 07/17/17 at 16:30 Dextrose (D50w Syringe) 50 ml Q15M PRN IV DECREASED GLUCOSE; Start 07/17/17 at 16:30 Glucagon (Glucagen) 1 mg Q15M PRN IM DECREASED GLUCOSE; Start 07/17/17 at 16: 30 Glucose 15 gm 15 gm Q15M PRN BUCCAL DECREASED GLUCOSE; Start 07/17/17 at 16:30 Ferric Sodium Gluconate Complex/ Sodium Chloride (Ferrlecit/NS) 110 ml @ 110 mls/hr Q24H IVPB Last administered on 07/18/17 10:52; Admin Dose 110 MLS/HR; Start 07/18/17 at 11:00; Stop 07/22/17 at 11:59 Silver Sulfadiazine 1 applic 1 applic BID TOP Last administered on 07/18/17 21:31; Admin Dose 1 APPLIC; Start 07/18/17 at 10:30 Vancomycin HCl/ Sodium Chloride (Vancocin/NS) 250 ml @ 83.333 mls/ hr Q24H IVPB ; Start 07/19/17 at 10:00 Miscellaneous Information FORTEO IS NON-FORMULARY ITEM...PLE... Q8H XX ; Start 07/18/17 at 17:30 Magnesium Sulfate/ Dextrose (Magnesium Sulfate/D5W) 106 ml @ 35.333 mls/ hr ONCE ONCE IVPB ; Start 07/19/17 at 09:00; Stop 07/19/17 at 11:59 AZRA HAQUE MD Jul 19, 2017 07:40
--- NOTE | 2017-07-19 07:42 | PDOCDIS ---
Discharge Instructions CONDITION Patient Condition: Good HOME CARE INSTRUCTIONS: Special Diet: carb controlled FOLLOW UP/APPOINTMENTS Follow-up Plan should see me in 3 weeks, has appt to see gi today and to cont cleocin which she has at home 300 mg qid x 5d AZRA HAQUE MD Jul 19, 2017 07:42
[2017-07-19] MEDS ORDERED: CLIN300C2 PO (07:45)
[2017-07-19 07:48] VITALS: BP 106/52; RESP 18
[2017-07-19] MEDS: INSULIN ASPART [NOVOLOG] 3 ML PEN SC SCH ×2 (08:00→12:15)
[2017-07-19] MEDS: FOLIC ACID 1 MG TAB PO SCH (08:28)
[2017-07-19] MEDS: metFORMIN 500 MG TAB PO SCH (08:28)
[2017-07-19] MEDS: GABAPENTIN 300 MG CAP PO SCH (08:28)
[2017-07-19] MEDS: ASPIRIN (EC) 81 MG TAB PO SCH (08:28)
[2017-07-19] MEDS: LINAGLIPTIN 5 MG TABLET PO SCH (08:28)
[2017-07-19] MEDS: BENAZEPRIL 40 MG TAB PO SCH (08:29)
[2017-07-19] MEDS: PIOGLITAZONE 30 MG TAB PO SCH (08:31)
[2017-07-19] MEDS: SILVER SULFADIAZINE 1% 25 GM CR TOP SCH (08:34)
[2017-07-19] MEDS ORDERED: MAGNESIUM SULFATE 3 GM in DEXTROSE 5% 100 ML IVPB ONE (09:00)
[2017-07-19] MEDS ORDERED: VANCOMYCIN 1.25 GM in SOD CHLORIDE 0.9% 250 ML IVPB SCH (10:00)
[2017-07-19] MEDS: SOD FERRIC GLUC COMPLX 125 MG in SOD CHLORIDE 0.9% 100 ML IVPB SCH (11:00)
[2017-07-19 14:40] VITALS: BP 112/55; RESP 18
--- NOTE | 2017-07-25 11:19 | DS ---
DATE OF ADMISSION: 07/16/2017 DATE OF DISCHARGE: 07/19/2017 HISTORY OF PRESENT ILLNESS: This 72-year-old female admitted with pain and swelling involving her l eft lower extremity, having been seen in the office 1 day prior with evidence of shingles involving her left lower extremity and related cellulitis. PHYSICAL EXAMINATION: VITAL SIGNS: On admission, 140/63. She was afebrile, pulse was 90. CARDIOPULMONARY: Normal. ABDOMEN: Normal. EXTREMITIES: Revealed mild nonpitting edema of the left lower extremity with blisters and mild eryt patience. Calf was not tender. LABORATORY AND DIAGNOSTIC STUDIES: On admission, hematocrit 30.8, on discharge 29.3, white count wa s normal, platelet count ranged between 112,000 and 113,000. Chemistries unrevealing with albumin o f 4, globulin 3.5. Urine revealed 1+ blood 3 white cells per high powered field. Stool for OB was negative x1 immunoelectrophoresis revealed no monoclonal protein. IMAGING STUDIES: Revealed no evidence of deep vein thrombosis bilaterally. Chest x-ray was not per formed. EKG revealed no acute changes. HOSPITAL COURSE: Included elevation of the involved leg treatment with vancomycin, local treatment with Silvadene cream and a soft dressing. At time of discharge, she was overall markedly improved. DISCHARGE DIAGNOSES: 1. Shingles involving the left lower extremity and cellulitis, that has improved. 2. Known diabetes control in the hospital was acceptable. 3. History of hypertension, controlled. 4. Anemia with prior noted iron deficiency, having received Ferrlecit here in the hospital and is t o see gastroenterology 1 week. MEDICATIONS ON DISCHARGE: 1. Include Aspirin 1 per day. 2. Benazepril 40 per day. 3. Dexilant 60 mg per day. 4. Folic acid 1 mg per day. 5. Glimepiride 8 mg in the morning and 4 mg at night. 6. Metformin 500 t.i.d. 7. Reglan 10 mg a.c. t.i.d. 8. Actos 30 mg per day. 9. Simvastatin 40 mg per day. 10. Januvia 100 mg per day. 11. Forteo 20 mcg daily. She is to see me in 1 week. Dictated By: AZRA CABALLERO/YUNG Conf#: [id number] [facility]#: [id number]
== END 2017-07-19 16:11 | disposition home or self-care (01) | DRG 603 ==
LOC: E/R 00:23 → PP2 02:47
PROVIDERS: ADMIT Internal Medicine; ATTEND Internal Medicine
DX: L03.116 Cellulitis of left lower limb (principal); B02.9 Zoster without complications; M06.9 Rheumatoid arthritis, unspecified; E11.9 Type 2 diabetes mellitus without complications; E78.5 Hyperlipidemia, unspecified; Z79.52 Long term (current) use of systemic steroids; I25.10 Atherosclerotic heart disease of native coronary artery without angina pectoris; M81.0 Age-related osteoporosis without current pathological fracture
CPT/HCPCS: 80048; 80053; 81001; 82270; 82607; 82746; 82962; 83036; 83540; 83605; 83735; 84100; 85025; 86320; 87040; 87086; 93005; 93970; 97116; 97162; J0133; J0690; J0696; J1644; J1815; J2270; J2916; J2930; J3370; J3475; J7040; J7050

== ENCOUNTER 2017-08-03 01:30 | Emergency (ER) | payer MEDICARE, OTHER ==
[~2017-08-03] VITALS: Ht 154.9 cm; Wt 73.5 kg
[~2017-08-03 01:30] MED LIST changes: +ASPI-535 PO; -ASPI-664 PO; +BENA40TA41 PO; +CLIN300C2 PO; -DEXL30CA2 PO; +DEXL60CA2 PO; +GLIM4TAB55 PO; -METH2.5T21 PO; +MTF1000T PO; +PIOG30TA2 PO; +SIMV40TA2 PO; -SIMV40TA3 PO; +TERI2.4P SQ
[2017-08-03 01:35] VITALS: Ht 154.9 cm; Wt 73.5 kg
[2017-08-03] MEDS ORDERED: CEPH-443 PO (03:36)
[2017-08-03] MEDS ORDERED: SULF1TAB31 PO (03:36)
[2017-08-03 03:57] VITALS: BP 108/54; PULSE 74; RESP 16; TEMP 98.7
--- NOTE | 2017-08-10 04:33 | ERD ---
ER Documentation Chief Complaint Chief Complaint left leg rash w/ pus,hx shingles on same leg HPI Date of service 08/03/2017 72-year-old female is here to emergency department for complaints of some redness and purulent discharge is coming from the rash after shingles. Patient' s complaint of pain sharp pain 6/10 scale, as was upon touching the area. Patient does not have any fever or chills. ROS All systems reviewed and are negative except as per history of present illness. Medications Home Meds Active Scripts Sulfamethoxazole/Trimethoprim* (Bactrim Ds* Tablet) 1 Each Tablet, 1 TAB PO BID , #20 TAB Prov:KINGSLEY ISAAC NP 08/03/17 Cephalexin* (Keflex*) 500 Mg Capsule, 500 MG PO QID for 10 Days, CAP Prov:KINGSLEY ISAAC NP 08/03/17 Clindamycin Hcl* (Cleocin*) 300 Mg Cap, 300 MG PO Q6 for 5 Days, CAP Prov:AZRA HAQUE MD 07/19/17 Reported Medications Teriparatide (Forteo) 2.4 Ml Pen.injctr, 20 MCG SQ DAILY, EA 07/16/17 Pioglitazone Hcl* (Actos*) 30 Mg Tablet, 30 MG PO DAILY, #30 TAB 07/16/17 Aspirin Ec (Aspir 81) 81 Mg Tablet., 81 MG PO DAILY, #30 TAB 07/16/17 Folic Acid* (Folic Acid*) 1 Mg Tablet, 1 MG PO DAILY, TAB 07/16/17 Simvastatin* (Zocor*) 40 Mg Tablet, 40 MG PO QHS, #30 TAB 07/16/17 Benazepril Hcl* (Benazepril Hcl*) 40 Mg Tablet, 40 MG PO DAILY, #30 TAB 07/16/17 Sitagliptin* (Januvia*) 100 Mg Tablet, 100 MG PO DAILY, #30 TAB 07/16/17 Glimepiride* (Amaryl*) 4 Mg Tablet, 8 MG PO DAILY, TAB 07/16/17 Metformin* (Glucophage*) 1,000 Mg Tablet, 1000 MG PO BID, #60 TAB 07/16/17 Dexlansoprazole (Dexilant) 60 Mg Cap., 60 MG PO DAILY, #30 CAP 07/16/17 Metoclopramide* (Reglan*) 5 Mg Tablet, 10 MG PO 11/16/13 Metformin* (Glucophage*) 500 Mg Tab, 500 MG PO BID, TAB 11/16/13 Folic Acid* (Folic Acid*) 1 Mg Tablet, 1 MG PO DAILY 11/16/13 Benazepril Hcl* (Lotensin*) 40 Mg Tablet, 40 MG PO DAILY 11/16/13 Glimepiride* (Amaryl*) 2 Mg Tablet, 4 MG PO DAILY 11/16/13 Allergies Allergies: Coded Allergies: No Known Allergy (Unverified , 08/03/17) PMhx/Soc History of Surgery: Yes (hysterectomy, hernia repair, cholecystectomy ) Anesthesia Reaction: No Hx Neurological Disorder: No Hx Respiratory Disorders: No Hx Cardiac Disorders: Yes (HTN) Hx Psychiatric Problems: No Hx Miscellaneous Medical Probl: Yes (DM, RA, HLD, cirrhosis) Hx Alcohol Use: No Hx Substance Use: No Hx Tobacco Use: No Smoking Status: Never smoker FmHx Family History: No coronary disease, No diabetes, No other Physical Exam Physical Exam GENERAL: The patient is well developed and appropriate for usual state of health, in no apparent distress. CHEST: Clear to auscultation bilaterally. There are no rales, wheezes or rhonchi. HEART: Regular rate and rhythm. No murmurs, clicks, rubs or gallops. No S3 or S4. ABDOMEN: Soft, nontender and nondistended. Good bowel sounds. No rebound or guarding. No gross peritonitis. No gross organomegaly or masses. No Flores sign or McBurney point tenderness. BACK: No midline or flank tenderness. EXTREMITIES: Equal pulses bilaterally. There is no peripheral clubbing, cyanosis or edema. No focal swelling or erythema. Full range of motion. Grossly neurovascularly intact. NEURO: Alert and oriented. Cranial nerves 2-12 intact. Motor strength in all 4 extremities with 5/5 strength. Sensation grossly intact. Normal speech and gait. SKIN: Noted wound on the left lower leg with some redness around the area, no active purulent discharge noted at this time. No fluctuance noted. No induration. There is no apparent rash or petechia. The skin is warm and dry. HEMATOLOGIC AND LYMPHATIC: There is no evidence of excessive bruising or lymphedema. No gross cervical, axillary, or inguinal lymphadenopathy. Procedures/MDM Medical decision making: Patient symptoms was likely is consistent with infected wound. No symptoms of any cellulitis, no symptoms of any abscess, no symptoms of any neurovascular compromise. Outpatient management is appropriate at this time, patient was advised to follow-up with primary care doctor in 48 hours for reevaluation of symptoms. Patient was advised to return to emergency department for any worsening symptoms. Disposition: Home. Stable. Departure Diagnosis: Primary Impression: Infected wound Condition: Stable Patient Instructions: Wound Care Additional Instructions: recheck in 48 hrs, return for any worsening s/s KINGSLEY ISAAC NP Aug 10, 2017 04:33
== END 2017-08-03 03:59 | disposition home or self-care (01) ==
LOC: FTE 01:30
DX: L08.9 Local infection of the skin and subcutaneous tissue, unspecified (principal); I10 Essential (primary) hypertension; E11.9 Type 2 diabetes mellitus without complications; Z79.82 Long term (current) use of aspirin; Z79.84 Long term (current) use of oral hypoglycemic drugs
CPT/HCPCS: 99284

== ENCOUNTER → 2018-01-11 | Outpatient (CLI) | END | disposition home or self-care (01) ==

== ENCOUNTER → 2018-01-23 | Outpatient (CLI) | END | disposition home or self-care (01) ==

== ENCOUNTER → 2018-02-01 | Outpatient (CLI) | END | disposition home or self-care (01) ==